=== PATIENT | female | born 1990 | race Caucasian/White ===

== ENCOUNTER 2017-01-08 13:58 | Emergency (ER) | END 2017-01-08 15:05 | disposition left against medical advice (07) | DX: Z53.21 Procedure and treatment not carried out due to patient leaving prior to being seen by health care provider (principal) ==

== ENCOUNTER 2017-03-06 08:34 | Outpatient (CLI) | payer OTHER ==
[~2017-03-06] VITALS: Ht 157.5 cm; Wt 70.0 kg
[2017-03-06 08:54] VITALS: Ht 157.5 cm; Wt 70.0 kg
[2017-03-06 08:55] VITALS: BP 99/60; PULSE 75; RESP 19
[2017-03-06] MEDS ORDERED: PREN1TAB79 PO (08:56)
--- NOTE | 2017-03-06 09:19 | CONS ---
Date/Time of Note Date/Time of Note DATE: 03/06/17 TIME: 09:13 Consultation Date/Type/Reason Admit Date/Time March 06, 2017 OB triage consult This patient is a 27 years old primigravida with estimated date of confinement of July 05, 2017 which makes her 22 weeks and 5 days today. She came to triage complaining of a low movement. She was here last week for the same complaint and had a ultrasound performed which apparently they have hollowing another finding was normal. On examination today she is a well-developed well-nourished woman in no acute distress. On general examination her blood pressure is 99/60, pulse rate 75 respiration 18 , and temperature was normal. Constitutional: No chills, No diaphoresis, No disoriented, No febrile, No improved, No no complaints, No other, No poor po, No requiring IVF, No requiring O2 Eyes: No discharge, No no complaints, No other, No pain, No redness, No visual change ENT: No bleeding, No congestion, No discharge, No dysphagia, No no complaints, No other, No pain, No sore throat Respiratory: No cough, No no complaints, No other, No pain, No pleuritic pain, No shortness of breath, No sputum, No wheezing Cardiovascular: No chest pain, No edema, No lightheadedness, No no complaints, No orthopenea, No other, No palpitations, No paroxysmal nocturnal dyspnea Gastrointestinal: No blood, No constipation, No decreased appetite, No diarrhea , No flatus, No nausea, No no complaints, No other, No pain, No passing stool, No vomiting Genitourinary: other (Pelvic exam was not performed due to the fact that she did not have any contractions), No bleeding, No discharge, No dysuria, No flank pain, No hematuria, No no complaints Musculoskeletal: No back pain, No bone/joint pain, No neck pain, No no complaints, No other, No restricted range of motion, No swelling Skin: No bruising, No erythema, No laceration, No no complaints, No other, No pruritis, No rash, No skin lesions Neurologic: No confusion, No dizziness, No focal-weakness, No headache, No no complaints, No other, No seizure, No syncope Additional Comments Regarding the heart rate tracing was very normal there was some variability of the heart no decelerations She was not having any contractions . She was not complaining of any pain As I mentioned due to the fact that she had an ultrasound last week per recommendation of Dr. Strong another ultrasound was not performed and the patient was discharged home to be followed in the clinic. Social History Smoking Status: Never smoker Exam/Review of Systems Vital Signs Vitals Vital Signs Date Time Temp Pulse Resp B/P Pulse Ox O2 Delivery O2 Flow Rate FiO2 03/06/17 08:55 98.6 75 19 99/60 99 Room Air KANA GUERRERO MD Mar 06, 2017 09:19
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
== END 2017-03-06 09:14 | disposition home or self-care (01) ==
LOC: OBT 08:34 → L-D 08:35 → OBT 09:14
PROVIDERS: ATTEND Obstetrics & Gynecology
DX: O36.8120 Decreased fetal movements, second trimester, not applicable or unspecified (principal); Z3A.22 22 weeks gestation of pregnancy
CPT/HCPCS: G0463

== ENCOUNTER 2017-03-30 17:22 | Outpatient (CLI) | payer OTHER ==
[~2017-03-30] VITALS: Ht 162.6 cm; Wt 75.4 kg
[~2017-03-30 17:22] MED LIST: PREN1TAB79 PO
[2017-03-30 17:29] VITALS: Ht 162.6 cm; Wt 75.4 kg
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
[2017-03-30] MEDS ORDERED: LACTATED RINGER'S 500 ML IV ONE (19:30)
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
== END 2017-03-30 23:15 | disposition home or self-care (01) ==
LOC: OBT 17:22 → L-D 17:23 → OBT 23:15
PROVIDERS: ATTEND Obstetrics & Gynecology
DX: O26.892 Other specified pregnancy related conditions, second trimester (principal); Z04.1 Encounter for examination and observation following transport accident; Z3A.26 26 weeks gestation of pregnancy
CPT/HCPCS: 36415; 76815; 84112; 86850; 86900; 86901; J7120; Z7500; G0463

== ENCOUNTER 2017-06-18 18:45 | Outpatient (CLI) | END 2017-06-19 14:10 | disposition home or self-care (01) ==

== ENCOUNTER 2017-06-24 05:48 | Inpatient (IN) | END 2017-06-26 16:40 | disposition home or self-care (01) | DRG 775 ==